=== PATIENT | male | born 2000 | race Caucasian/White ===

== ENCOUNTER 2020-03-21 02:38 | Outpatient (CLI) | payer MEDICAID, SELFPAY ==
[2020-03-21 09:37] LABS: Abs Immature Grans 0.04 10^3/uL (0.0-0.06); Absolute Basophil Count 0.05 10^3/uL (0.0-0.2); Absolute Eosinophil Count 0.04 10^3/uL (0.0-0.7); Absolute Lymphocyte Count 1.69 10^3/uL (1.2-3.4); Absolute Monocyte Count 0.61 10^3/uL (0.1-0.8); Absolute Neutrophil Count 3.91 10^3/uL (1.2-6.7); Basophils % 0.8; Eosinophils % 0.6; HCT 47.8 % (40.0-50.0); HGB 16.9 g/dL (13.5-17.5); Immature Grans % 0.6; Lymphocytes % 26.7; MCH 29.2 pg (27.0-33.0); MCHC 35.4 % (32.0-36.0); MCV 82.7 fL (80-95); MPV 10.2 fL (8.0-11.0); Monocytes % 9.6; Neutrophils % 61.7; Nucleated RBC 0 %; Platelet Count 218 10^3/uL (130-400); RBC 5.78 10^6/uL (4.36-5.78); RDW 11.6 % (11.8-14.1); RDW-SD 34.9 fL; WBC 6.34 10^3/uL (4.4-10.8)
[2020-03-21 10:43] LABS: ALT 22 U/L (16-63); AST 13 U/L (15-37); Albumin 4.6 g/dL (3.4-5.0); Alkaline Phosphatase 69 U/L (46-116); Anion Gap 9.5 mmol/L (3-11); BUN 21 mg/dL (7-18); Bilirubin, Total 0.4 mg/dL (0.2-1.0); CO2 29.5 mmol/L (21.0-32.0); CREATININE 1.25 mg/dL (0.70-1.30); Calcium 9.9 mg/dL (8.5-10.1); Chloride 104 mmol/L (98-107); FREE T4 0.99 ng/dL (0.76-1.46); Glucose 93 mg/dL (74-106); Potassium 4.1 mmol/L (3.5-5.1); Sodium 143 mmol/L (136-145); TSH 1.98 uIU/mL (0.36-3.74); Total Protein 7.7 g/dL (6.4-8.2)
[2020-03-21 16:49] LABS: T3,Free 3.3 pg/mL (2.8-5.3)
== END 2020-03-21 02:58 ==
PROVIDERS: PCP Naturopath; Visit Provider Naturopath
DX: R53.83 Other fatigue (principal); E07.9 Disorder of thyroid, unspecified; R39.15 Urgency of urination; F41.9 Anxiety disorder, unspecified; R42 Dizziness and giddiness; J06.9 Acute upper respiratory infection, unspecified
CPT/HCPCS: 36415; 80053; 84439; 84443; 84481; 85025

== ENCOUNTER 2020-03-21 15:32 | Outpatient (REF) | payer MEDICAID, SELFPAY ==
[2020-03-21 16:46] LABS: Bilirubin Negative (Negative); Blood Negative (Negative); Clarity Clear (Clear); Glucose Negative (Negative); Ketones Negative (Negative); Leukocyte Esterase Negative (Negative); Nitrite Negative (Negative); Urobilinogen 0.2 EU/dL (Up TO 0.2)
[2020-03-23 21:44] LABS: Total Arsenic <15 mcg/24 h (<18); Urine Volume 1800 mL
== END 2020-03-21 15:52 ==
LOC: LBN 15:32
PROVIDERS: PCP Naturopath; Visit Provider Naturopath
DX: R39.15 Urgency of urination (principal); R42 Dizziness and giddiness; R53.83 Other fatigue; F41.9 Anxiety disorder, unspecified; R41.0 Disorientation, unspecified; E07.9 Disorder of thyroid, unspecified
CPT/HCPCS: 82175; 81003; 81050